=== PATIENT | male | born 1930 | race Caucasian/White ===

== ENCOUNTER 2017-04-18 14:41 | Emergency (ER) | payer MEDICARE, BC ==
[~2017-04-18] VITALS: Ht 193 cm; Wt 99.8 kg
[2017-04-18 14:41] VITALS: BP 130/82
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
--- NOTE | 2017-04-18 15:21 | NUR ---
PATIENT TAKEN TO CT VIA STRETCHER.
== END 2017-04-18 16:19 | disposition home or self-care (01) ==
LOC: ER 14:44
DX: M54.5 Low back pain (principal); E11.9 Type 2 diabetes mellitus without complications; F03.90 Unspecified dementia, unspecified severity, without behavioral disturbance, psychotic disturbance, mood disturbance, and anxiety; V49.60XA Unspecified car occupant injured in collision with unspecified motor vehicles in traffic accident, initial encounter; Y93.89 Activity, other specified; Y92.410 Unspecified street and highway as the place of occurrence of the external cause; Y99.8 Other external cause status
CPT/HCPCS: 72131; 99284; A4606; Z7610